=== PATIENT | female | born 1990 | race Caucasian/White ===

== ENCOUNTER 2018-01-08 01:11 | Emergency (ER) | payer SELFPAY ==
[~2018-01-08] VITALS: Ht 160 cm; Wt 63.5 kg
[2018-01-08] MEDS: LABETALOL HCL 5 MG/ML ML 20ML VIAL IV ONE (03:02)
[2018-01-08] MEDS: SODIUM CHLORIDE 0.9% 1,000 ML IV ONE ×2 (03:02→05:31)
[2018-01-08 04:23] LABS: Basophils # (auto) 0 uL; Basophils % (auto) 0.1 % (0.0-2.0); Eosinophils # (auto) 0 uL; Eosinophils % (auto) 0.2 % (0.0-7.0); Hematocrit 37.3 % (36.0-46.0); Hemoglobin 12.7 g/dL (12.2-16.2); Lymphocytes # (auto) 0.4 uL; Lymphocytes % (auto) 4.2 % (10.0-50.0); Mean Corpuscular Volume 91.3 fL (80.0-100.0); Monocytes # (auto) 0.2 uL; Monocytes % (auto) 2.4 % (0.0-12.0); Neutrophils # (auto) 8.2 uL; Neutrophils % (auto) 93.1 % (37.0-80.0); Platelet Count (auto) 227 10^3/uL (140-450); Red Blood Cells 4.09 10^6/uL (4.0-5.20); Red Cell Distribution Width 16.5 % (11.8-14.3); White Blood Cell 8.8 10^3/uL (4.4-10.8)
[2018-01-08 04:32] LABS: Acetaminophen < 2.0 ug/mL (10-30); Salicylate < 1.7 mg/dL (2.8-20.0)
[2018-01-08 04:38] LABS: BUN/Creatinine Ratio 11.2; Bilirubin, Total 0.4 mg/dL (0.2-1.0); Calcium 8.1 mg/dL (8.5-10.1); Potassium 4.1 mmol/L (3.5-5.1); Total Protein 7.4 g/dL (6.4-8.2)
[2018-01-08 05:27] LABS: Urine Bacteria MOD /hpf (None Seen); Urine Blood 2+ /uL (Negative); Urine Mucus FEW (None Seen); Urine Specific Gravity 1.007 (1.001-1.035); Urine WBC 45 /hpf (0 - 5)
[2018-01-08 05:43] LABS: Alcohol, Urine < 3.0 mg/dL (0-5); Amphetamine Screen, Urine NEGATIVE (NEGATIVE); Barbiturate Scree,Urine NEGATIVE (NEGATIVE); Benzodiazephine Screen, Urine NEGATIVE (NEGATIVE); Cannabinoid Screen, Urine POSITIVE (NEGATIVE); Cocaine Screen, Urine NEGATIVE (NEGATIVE); Opiate Scree,Urine NEGATIVE (NEGATIVE); Phencyclidine Screen, Urine NEGATIVE (NEGATIVE)
[2018-01-08 05:51] VITALS: BP 134/89
[2018-01-08] MEDS: LORazepam 2MG/ML-1ML VIAL IV ONE (06:29)
[2018-01-08] MEDS: LORazepam 2MG/ML-1ML VIAL ONE (06:29)
== END 2018-01-08 07:25 | disposition home or self-care (01) ==
LOC: ER 01:11
DX: G92 Toxic encephalopathy (principal); F19.10 Other psychoactive substance abuse, uncomplicated; R41.82 Altered mental status, unspecified; R42 Dizziness and giddiness
CPT/HCPCS: 36415; 80053; 80307; 80320; 80329; 81001; 81025; 82962; 85025; 93005; 96374; 96375; 99291; J2060; J7030